=== PATIENT | female | born 1975 | race Caucasian/White ===

== ENCOUNTER → 2016-08-16 | Outpatient (CLI) | payer OTHER ==
[2016-08-16 13:54] VITALS: BMI 42.0
[2016-08-16 14:16] VITALS: BP 130/92; PULSE 112; TEMP 98.3
--- NOTE | 2016-08-16 14:26 | P.BASOAP ---
Subjective Principal diagnosis: Abdominal pain, vomiting Patient is known to our service. She underwent lap band placement 2007. She was last seen she believes in 2008. Her preoperative weight was 290. Currently it is 268. She thinks she was able to get as low as 240. She had an episode of ischemic colitis last October. The patient sent that time has had some discomfort at her port site. This seems to be related to activity and also sometimes related to eating. She has not had any adjustments since 2008. She is interested in conversion to another bariatric procedure and currently is interested in sleeve gastrectomy Objective - Vital Signs Vital signs: Vital Signs Temp 98.3 F 08/16/16 13:44 Pulse 112 H 08/16/16 13:44 Resp BP 130/92 08/16/16 13:44 Pulse Ox Intake & Output 08/15/16 08/16/16 08/16/16 18:59 06:59 18:59 Weight 121.563 kg - Exam Abdomen: Soft, nontender, nondistended Assessment/Plan (1) Abdominal pain Narrative/Plan: The patient and I discussed the options in detail. At this time we have suggested loosening the patient's band. She will schedule an appointment at the upcoming seminar to discuss possible conversion further. The patient's lap band port was palpated. The site was aseptically prepped. 1% lidocaine was infiltrated into the subcutaneous tissues through a diabetic syringe. The Coreas needle was advanced into the port. Aspiration took place. A total of 8 ml of fluid was evacuated. Pressure was held and a sterile dressing was applied. Plan: Date: 08/16/16 Initial Weight: Initial BMI: Current Weight: 121.563 kg Current BMI: 42.0 Type of Surgery: Total Volume in Band: 0 Previous Volume: Volume Removed: 8 Volume Added: Band Size:
== END | disposition home or self-care (01) ==
LOC: BARWHC3 12:49
PROVIDERS: ATTEND Surgery
DX: R10.9 Unspecified abdominal pain (principal); R11.10 Vomiting, unspecified; E66.01 Morbid (severe) obesity due to excess calories; Z98.84 Bariatric surgery status
CPT/HCPCS: 99211

== ENCOUNTER → 2016-10-13 | Outpatient (CLI) | payer OTHER ==
[2016-10-13 11:49] VITALS: BP 158/105; PULSE 99; TEMP 98.4; BMI 45.1
--- NOTE | 2016-12-02 11:20 | P.PN ---
Progress Note - Text DATE OF CONSULTATION: 10/13/2016 DATE OF SERVICE: 10/13/2016 CHIEF COMPLAINT: Morbid obesity HISTORY OF PRESENT ILLNESS: Josephine Quiñones is a 41-year-old female with history of adjustable gastric band placed in 2007. She reports having history of ischemic colitis. Since then she has had moderate troubles with her adjustable gastric band including moderate abdominal pain. This has been going on for at least a year. She reports having up to 9 mL of fluid within her band. She reports no improvement of her abdominal pain despite her fluid removal from her band. At her height of 5-foot , 6-1/4-inch frame her ideal body weight is 154 pounds. Her highest weight was 302 pounds. She comes in weighing 281 pounds. She has lost and maintained 21 pounds. Body mass index is reduced from 48.5 down to 45.1. She is still 127 pounds overweight. She denies any active gastroesophageal reflux disease. She denies any Crohn's disease or ulcerative colitis. She denies any stomach or esophageal cancers. She denies any food allergies. She still has her gallbladder. She reports nausea with eating. She denies any gallbladder problems within her family. She does complain of left upper quadrant abdominal pain. She also reports a pulling sensation along the abdomen. She denies any troubles with constipation. Now she presents for further evaluation and management. PAST MEDICAL HISTORY: 1. Morbid obesity. 2. Chronic pain. 3. Ischemic colitis. 4. Osteoarthritis of lower back. 5. Anxiety. PAST SURGICAL HISTORY: Adjustable gastric band placed in 2007. MEDICATIONS: 1. Trazodone. 2. Morphine sulfate. 3. [place]. 4. Gabapentin. 5. Baclofen. ALLERGIES: Denies. SOCIAL HISTORY: Lifelong nontobacco user. FAMILY HISTORY: Pertinent for her grandfather having gallbladder disorder, also reports morbid obesity. REVIEW OF SYSTEMS: CONSTITUTIONAL: [place] body weight of 154 pounds. Highest weight 302 pounds. Present weight of 281 pounds, maintaining weight loss of 21 pounds. Percent excess weight loss of 14%. Body mass index reduced from 48.5 down to 45.1. She is still 127 pounds overweight. HEENT: Denies troubles with vision or hearing. Denies any active dysphagia. ENDOCRINE: Denies any thyroid disorder or diabetes. RESPIRATORY: No reports of active asthma. No reports of recent pneumonia. CARDIOVASCULAR: Denies any heart attack or chest pain. GASTROINTESTINAL: Has a personal history of ischemic colitis including chronic abdominal pain. NEURO: No report of stroke or seizure disorder. PSYCH: No reports of suicidal depression. Has history of chronic pain. HEMATOLOGIC: Denies any easy bruising or bleeding. PHYSICAL EXAM: VITAL SIGNS: 98.4, 99, 16, 158/105, 5 feet 6-1/4 inches, weight of 281 pounds. Body mass is 45.2. GENERAL: Well-developed female in no acute distress. HEENT: No scleral icterus. Extraocular movements grossly intact. Moist buccal mucosa. NECK: Supple without lymphadenopathy. CHEST: Nonlabored respirations. Equal bilateral excursions. CARDIOVASCULAR: Regular rate and rhythm. ABDOMEN: Soft, mild tenderness along the left upper quadrant. No erythema along the port site. NEURO: No focal or lateralizing signs. Cranial nerves 2 through 12 are grossly within normal limits. PSYCH: Appropriate affect. Alert and oriented to person, place, and time. LABS: No new labs identified at this time. ASSESSMENT: 1. Morbid obesity due to excess calories. 2. Body mass index reduced from 48.5 down to 45.1. 3. History of adjustable gastric band with complications. 4. History of ischemic colitis. 5. Left upper quadrant abdominal pain. 6. Inadequate weight loss following weight loss procedure. PLAN: 1. Recommend bariatric metabolic panel. 2. Recommend referral to bariatric dietitian to evaluate weight loss. 3. Recommend food exercise journal. 4. Recommend CT of the abdomen and pelvis for her abdominal pain. 5. She has history of hypertension and would also recommend cardiac risk assessment. 6. She is pending a bariatric metabolic panel at this time.
== END | disposition home or self-care (01) ==
LOC: BARWHC3 10:36
PROVIDERS: ATTEND Surgery Plastic and Reconstructive Surgery
DX: E66.01 Morbid (severe) obesity due to excess calories (principal); Z68.42 Body mass index [BMI] 45.0-49.9, adult; R10.12 Left upper quadrant pain; Z98.84 Bariatric surgery status; Z79.899 Other long term (current) drug therapy; G89.29 Other chronic pain; F41.9 Anxiety disorder, unspecified; M47.896 Other spondylosis, lumbar region; K55.1 Chronic vascular disorders of intestine
CPT/HCPCS: 99211

== ENCOUNTER → 2021-07-28 | Outpatient (CLI) | payer OTHER ==
--- NOTE | 2021-07-29 02:23 | MR ---
EXAMINATION TYPE: MR lumbar spine wo con DATE OF EXAM: 07/28/2021 COMPARISON: None HISTORY: Chronic Pain x10 years Multiplanar multiecho imaging of the lumbar spine without contrast. Lumbar vertebrae have normal alignment. There is no compression fracture. There is narrowing at L5-S1 disc space. The sacroiliac joints are intact. There is no lumbar paraspinal mass. There is no compre ssion fracture. There is some mild posterior disc bulging at L5-S1 and L2-3 and L1-2 without signific ant impingement on the neural elements. No spinal stenosis. The lumbar neural foramina appear well ma intained. IMPRESSION: Minor degenerative disc changes. Mild posterior disc bulging at several levels without spinal stenosi s.
--- NOTE | 2021-07-30 12:25 | MM ---
Reason for exam: screening (asymptomatic). Last mammogram was performed 12 years and 3 months ago. History: Family history of breast cancer in aunt. Physical Findings: A clinical breast exam by your physician is recommended on an annual basis and results should be correlated with mammographic findings. MG Screening Mammo w CAD Bilateral CC and MLO view(s) were taken. XCCL view(s) were taken of the left breast. Prior study comparison: April 29, 2009, bilateral diagnostic digital mammog. There are scattered fibroglandular densities. New bilateral nodularity measuring up to 8mm on the right breast and 1.2cm on the left. ASSESSMENT: Incomplete: need additional imaging evaluation, BI-RAD 0 RECOMMENDATION: Special view mammogram and ultrasound of both breasts. [facility] will attempt to contact patient to return for supplemental views and ultrasound.
== END | disposition home or self-care (01) ==
LOC: RADMAMWWP 11:38
PROVIDERS: ATTEND Internal Medicine
DX: Z12.31 Encounter for screening mammogram for malignant neoplasm of breast (principal); M51.26 Other intervertebral disc displacement, lumbar region; M47.816 Spondylosis without myelopathy or radiculopathy, lumbar region; Z80.3 Family history of malignant neoplasm of breast
CPT/HCPCS: 72148; 77067

== ENCOUNTER → 2021-07-30 | Outpatient (CLI) | payer OTHER ==
--- NOTE | 2021-07-30 08:41 | US ---
EXAMINATION TYPE: US liver DATE OF EXAM: 07/30/2021 COMPARISON: NONE CLINICAL HISTORY: R74.01 Elevated liver enzymes. Abnormal labs, gastric band surgery EXAM MEASUREMENTS: Liver Length: 15.5 cm Gallbladder Wall: No clearly seen due to Shadowing cm CBD: 1.6 cm Right Kidney: 11.8 x 5.5 x 4.9 cm Pancreas: Echogenic,Tail obscured by overlying bowel gas Liver: Increased attenuation, decreased visualization of vessels suggestive of fatty infiltrate Gallbladder: shadowing Evidence for sonographic Wilkinson's sign: No CBD: wnl Right Kidney: No hydronephrosis or masses seen IMPRESSION: Shadowing gallbladder with possible gall stones and enlargement of the CBD
== END | disposition home or self-care (01) ==
LOC: RADUSWWP 07:53
PROVIDERS: ATTEND Internal Medicine
DX: R74.01 Elevation of levels of liver transaminase levels (principal)
CPT/HCPCS: 76705

== ENCOUNTER → 2021-08-18 | Outpatient (CLI) | payer OTHER ==
[2021-08-18 11:37] VITALS: BP 157/92; PULSE 91; RESP 18; TEMP 98.5
--- NOTE | 2021-08-18 11:42 | P.CON ---
Consult Note - . Consult date: 08/18/21 Assessment/Plan:: HISTORY OF PRESENT ILLNESS: 46 yr old female as a referral from Dr Coleman presents today with lower back pain due to disc bulges and DDD for evaluation. Patient states her pain a 3 out of 10 in intensity, sharp, constant, tight in the lower aspects of her lumbar spine with radiation of sharp, burning pain down the left lower extremity. Patient states her pain escalates to 10 out of 10 in intensity with walking for 15 minutes or standing for 30 minutes. 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 Pain is relieved with medications (Motrin 800mg and Suboxone), cannabis use, heat application every morning, chiropractic treatments in the past, home stretching regimen, repositioning, laying on her right side and rest. PMH: HTN, Iron deficiency anemia, Ischemic Colitis, ADHD, Anxiety PSH: Obesity, Gastric Lap in 2007 SH: +Cannabis use. No tobacco use. No ETOH abuse. 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 FH: +Grandfather with Gall Bladder condition All: NKDA Meds: See list REVIEW OF ORGAN SYSTEMS: CONSTITUTIONAL: No fevers or chills. No recent weight loss. HEENT: No visual acuity loss, eye pain, difficulties with hearing. No nosebleeds. No difficulty swallowing. RESPIRATORY: Denies any troubles with breathing or dyspnea on exertion. CARDIOVASCULAR: Denies any chest pain, palpitations, or recent heart attacks. GASTROINTESTINAL: Denies fatty food intolerance. Has change in bowel habits and gas bloat. GENITOURINARY: Denies any blood in urine. Has increased urinary frequency. NEUROLOGICAL: + numbness and tingling along the distal extremities. No seizure disorders or headaches. MUSCULOSKELETAL: + back pain SKIN: No skin cancer. No rash. PSYCHIATRIC: Denies current depression or suicidal thoughts. ENDOCRINE: Denies current thyroid disorders. Denies any blood sugar glucose intolerance. HEME/LYMPHATIC: Denies any lumps and bumps around the neck. History of deep venous thrombosis. ALLERGY/IMMUNOLOGY: No immunoglobulin therapy. No immune deficiencies. BREAST: Denies current breast lumps, pain or nipple discharge. Physical Examinations : Constitutional : Cooperative , not in acute distress . HEENT: Neck supple. No Lymphadenopathy. Normal thyroid size . Eyes no ptosis , no icterus, no photophobia . Hearing intact. Normal oropharynx. No Thrush. Respiratory : Chest clear to auscultations bilaterally. No wheezing. No rhonchi. Cardiovascular : Regular rate and rhythm , S1 / S2. No S3 . No S4. Gastrointestinal : Abdomen soft. No tenderness. Bowel sounds x 4. No organomegaly . Genitourinary : Deferred. Neurologic : Cranial nerve II to XII intact. No focal neurological deficits. Psychiatric : alert & oriented x 3. Matching mood & appropriate affect. Judgment & insight intact. Lymphatic No Lymphadenopathy. Musculoskeletal : Cervical Spine Motor strength in the deltoid and biceps: Normal right side. Normal Left side Motor strength biceps and the wrist extensors: Normal right side . Normal left side Motor strength in the triceps muscle: Normal right side. Normal left side Deep tendon reflexes: Normal at the biceps. Normal at Brachioradialis. Normal at triceps Cervical facet loading test: positive bilaterally Spurling test: positive bilaterally Neck distraction test: positive bilaterally Missy sign: positive bilaterally Lumbar spine Motor strength lower extremities ,thigh and legs 5/5 Right side , 5/5 Left side Deep tendon reflexes : Normal Knee Jerk. Normal Ankle Jerk Vertebral body tenderness over L4, L5 Lumbar facet Loading Test: positive Right / positive Left Range of motion of the lumbar spine Flexion 30 degrees, extension 10 degrees Straight Leg Raise test: Left/ Right positive at 30 degrees Cornell test: positive right / positive left. Severe tenderness over the Sacroiliac joint on the Right / Left sides Gaenslen test: positive bilaterally Seated flexion test: positive bilaterally. Imaging: MRI of the lumbar spine from 07/28/21 reviewed. Assessment/ Plan : Recommendation of LESI L4-L5. May need a series of injections, up to 3 within a six-month period, for optimal pain relief. Risks, benefits of procedure discussed and patient verbalized understanding. Denies aspirin or anti- coagulant use. Denies diabetes mellitus medical history. All questions answered. I have spent greater than 50 minutes on patient care today. Dr Pleitez was available by phone for the evaluation of this patient. The time was used to review the medical records including relevant urine studies and Prescription history (MAPs), review of the available imaging, evaluation and examination of the patient, coordination of care with the medical staff and if applicable referring physicians, as well as creation of the medical record PQRS Measure Charge Sheet Mode of Arrival: Ambulatory - Pain Location Bilateral Lower Back Non-Pharmacological Interventions: Inactivity, Position/Reposition Pharmacological Interventions: PRN Medication, Topical Medication PQRS Narrative: Smoking Status Never smoker Blood Pressure 157/92 Scale Used Numeric (1 - 10) Hx Alcohol Use (MH) No Home Medications: Ambulatory Orders Baclofen [Lioresal] 1 tab PO HS 08/16/16 Gabapentin 1 tab PO HS 08/16/16 HYDROcodone/APAP 10-325MG [[place] 10-325] 1 tab PO DIRECTED 08/16/16 Morphine Sulfate [[place]] 1 tab PO BID 08/16/16 traZODone HCL [TraZODone HCl] 1 tab PO HS 08/16/16
== END ==
LOC: PNWHC3 10:11
PROVIDERS: ATTEND Specialist
DX: M51.36 Other intervertebral disc degeneration, lumbar region (principal); M54.50 Low back pain, unspecified; M51.26 Other intervertebral disc displacement, lumbar region; I10 Essential (primary) hypertension; F90.9 Attention-deficit hyperactivity disorder, unspecified type; F41.9 Anxiety disorder, unspecified; E66.9 Obesity, unspecified; Z98.84 Bariatric surgery status
CPT/HCPCS: 99211

== ENCOUNTER → 2022-02-02 | Outpatient (CLI) | payer OTHER ==
--- NOTE | 2022-02-02 14:53 | MM ---
Reason for Exam: Follow-up at short interval from prior study. Last screening mammogram was performed 6 month(s) ago. Patient History: Menarche at age 11. First Full-Term at age 27. Patient has history of breast feeding. Maternal aunt had breast cancer, age 38. Last menstrual period: 01/26/2022 Risk Values: Jes 5 year model risk: 1.0%. NCI Lifetime model risk: 10.3%. Prior Study Comparison: 04/29/2009 Bilateral Diagnostic Mammogram, [facility]. 07/28/2021 Bilateral Screening Mammogram, [facility]. Tissue Density: The breast tissue is heterogeneously dense. This may lower the sensitivity of mammography. Findings: Analyzed By CAD. Nodularity seen bilaterally. Ultrasound is recommended. Overall Assessment: Incomplete: need additional imaging evaluation, BI-RAD 0 Management: Diagnostic Breast Ultrasound of both breasts. A clinical breast exam by your physician is recommended on an annual basis and results should be correlated with mammographic findings. This exam should not preclude additional follow-up of suspicious palpable abnormalities. Results were given to the patient verbally at the time of exam. Electronically signed and approved by: Arsh Sen M.D. Radiologis
--- NOTE | 2022-02-02 15:15 | USB ---
Reason for Exam: Follow-up at short interval from prior study. Patient History: Menarche at age 11. First Full-Term at age 27. Patient has history of breast feeding. Maternal aunt had breast cancer, age 38. Risk Values: Jes 5 year model risk: 1.0%. NCI Lifetime model risk: 10.3%. Technique: Method: Targeted. Prior Study Comparison: 04/29/2009 Bilateral Diagnostic Mammogram, [facility]. 07/28/2021 Bilateral Screening Mammogram, [facility]. Findings: The lateral section of the breast of the left breast and the area of palpable concern of the right breast were scanned. Ultrasound of the right breast demonstrates a subcutaneous sebaceous cyst at the palpable abnormality 4:00 position right breast. Ultrasound of the left breast reveals no distinct solid or cystic lesion. Overall Assessment: Benign, BI-RAD 2 Management: Screening Mammogram of both breasts in 1 year. A clinical breast exam by your physician is recommended on an annual basis and results should be correlated with mammographic findings. Electronically signed and approved by: Arsh Sen M.D. Radiologis
== END | disposition home or self-care (01) ==
LOC: RADMAMWWP 14:08
PROVIDERS: ATTEND Internal Medicine
DX: R92.8 Other abnormal and inconclusive findings on diagnostic imaging of breast (principal); Z80.3 Family history of malignant neoplasm of breast
CPT/HCPCS: 77066